=== PATIENT | female | born 1940 | race Caucasian/White ===

== ENCOUNTER 2018-06-29 18:01 | Emergency (ER) | payer MEDICARE, OTHER, MEDICAID ==
[2018-06-29] MEDS ORDERED: Glucagon,Human Recombinant 1 MG Vial IM ONE (18:06)
--- NOTE | 2018-06-30 06:11 | EDM.PDOC ---
ED HPI GENERAL MEDICAL PROBLEM - General Chief Complaint: Gastrointestinal Problem Time Seen by Provider: 06/29/18 18:15 Source of Information: Reports: Patient History Limitations: Reports: No Limitations - History of Present Illness INITIAL COMMENTS - FREE TEXT/NARRATIVE: PtRonal presents to ER with complaints difficulty swallowing. She is a resident at the [facility]. She was eating dinner (chicken breast) and states that she feels she has a piece stuck in her esophagus. She is no unable to swallow anything. She has been trying to swallow water but it comes right back up. She does complain of some upper chest pain. No shortness of breath. Onset: Today Onset Date: 06/29/18 Onset Time: 17:30 Location: Reports: Chest Quality: Reports: Ache, Sharp Severity: Moderate Associated Symptoms: Reports: Nausea/Vomiting - Related Data Allergies Allergy/AdvReac Type Severity Reaction Status Date / Time No Known Allergies Allergy Verified 06/29/18 18:30 Home Meds: Home Meds Lisinopril 1 tab PO DAILY 06/29/18 [History] Past Medical History Cardiovascular History: Reports: High Cholesterol, Hypertension, Other (See Below) Other Cardiovascular History: aortic stenosis Gastrointestinal History: Reports: Other (See Below) Other Gastrointestinal History: dysphagia Musculoskeletal History: Reports: Osteoarthritis, Other (See Below) Other Musculoskeletal History: myalgia, pain right hip Psychiatric History: Reports: Depression, OCD, Schizophrenia, Other (See Below) Other Psychiatric History: cognitive impairment Endocrine/Metabolic History: Reports: Other (See Below) Other Endocrine/Metabolic History: atrophy thyroid Social & Family History - Tobacco Use Smoking Status *Q: Former Smoker Used Tobacco, but Quit: Yes Month/Year Tobacco Last Used: 1989 ED ROS GENERAL - Review of Systems Review Of Systems: See Below Constitutional: Reports: No Symptoms HEENT: Reports: No Symptoms Respiratory: Reports: No Symptoms, Other (chest/esophageal pain) Cardiovascular: Reports: No Symptoms Endocrine: Reports: No Symptoms GI/Abdominal: Reports: No Symptoms : Reports: No Symptoms Musculoskeletal: Reports: No Symptoms Skin: Reports: No Symptoms Neurological: Reports: No Symptoms Psychiatric: Reports: No Symptoms Hematologic/Lymphatic: Reports: No Symptoms Immunologic: Reports: No Symptoms ED EXAM, GENERAL - Physical Exam Exam: See Below Exam Limited By: No Limitations General Appearance: Alert, WD/WN, No Apparent Distress Throat/Mouth: Normal Inspection, Normal Lips, Normal Teeth, Normal Gums, Normal Oropharynx, Dysphagia Head: Atraumatic, Normocephalic Neck: Normal Inspection, Supple, Non-Tender, Full Range of Motion Respiratory/Chest: No Respiratory Distress, Lungs Clear, Normal Breath Sounds, No Accessory Muscle Use, Chest Non-Tender Cardiovascular: Normal Peripheral Pulses, Regular Rate, Rhythm, No Edema, No Gallop, No JVD Peripheral Pulses: 4+: Radial (R) GI/Abdominal: Normal Bowel Sounds, Soft, Non-Tender, No Organomegaly, No Distention, Other (unable to swallow) (Female) Exam: Deferred Rectal (Female) Exam: Deferred Back Exam: Normal Inspection, Full Range of Motion, NT Extremities: Normal Inspection, Normal Range of Motion, Non-Tender, Normal Capillary Refill, No Pedal Edema Neurological: Alert, Oriented, CN II-XII Intact, Normal Cognition, Normal Gait, Normal Reflexes, No Motor/Sensory Deficits Course - Vital Signs Last Recorded V/S: Last Vital Signs Temp 36.5 C 06/29/18 18:10 Pulse 76 06/29/18 18:10 Resp 16 06/29/18 18:10 BP 152/77 H 06/29/18 18:10 Pulse Ox 97 06/29/18 18:10 - Orders/Labs/Meds Meds: Medications Discontinued Medications Generic Name Dose Route Start Last Admin Trade Name Jose Luis PRN Reason Stop Dose Admin Glucagon 1 mg 06/29/18 18:06 06/29/18 18:15 Glucagen IM 06/29/18 18:07 1 mg ONETIME ONE Administration - Re-Assessments/Exams Free Text/Narrative Re-Assessment/Exam: Pt. was given 1 mg glucagon IM. She was observed for a period of time. The discomfort resolved. She was then able to swallow water without any difficulty and her symptoms completely resolved. Departure - Departure Time of Disposition: 19:24 Disposition: DC/[facility] to [facility] Clinical Impression: Impacted esophageal foreign body - Discharge Information Instructions: Swallowed Foreign Body, Adult Referrals: Krystle Wasserman MD [Primary Care Provider] - Forms: ED Department Discharge Additional Instructions: mechanical soft diet for next 3 days. Follow-up in the clinic in 7-10 days. If this happens again, she might need to have an upper endoscopy to determine if she has a stricture in her esophagus. Make sure that her food is very well cut up. - Assessment/Plan Plan: mechanical soft diet for next 3 days. Follow-up in the clinic in 7-10 days. If this happens again, she might need to have an upper endoscopy to determine if she has a stricture in her esophagus. Make sure that her food is very well cut up.
== END 2018-06-29 19:24 ==
LOC: VM.ED 18:01
DX: T18.128A Food in esophagus causing other injury, initial encounter (principal); I10 Essential (primary) hypertension; Z87.891 Personal history of nicotine dependence; X58.XXXA Exposure to other specified factors, initial encounter
CPT/HCPCS: 96372; 99284; J1610

== ENCOUNTER 2018-07-28 08:39 | Day surgery (SDC) | payer MEDICARE, OTHER, MEDICAID ==
[~2018-07-28 08:39] MED LIST: Lactated Ringers 1,000 ML IV SCH; Sodium Chloride 0.9% 10 ML Syringe FLUSH PRN
[2018-07-28] MEDS ORDERED: Lactated Ringers 1,000 ML IV SCH (09:30)
[2018-07-28] MEDS ORDERED: Lidocaine 4% 5 ML Amp ONE (10:42)
[2018-07-28] MEDS ORDERED: Propofol 200 MG/20 ML SDV ONE (11:01)
[2018-07-28] MEDS ORDERED: fentaNYL 100 MCG/2 ML SDV ONE (11:12)
--- NOTE | 2018-07-28 12:17 | OR ---
PREOPERATIVE DIAGNOSIS: Dysphagia, abnormal barium swallow. POSTOPERATIVE DIAGNOSIS: Severe gastroesophageal reflux disease with esophageal stenosis, hiatal hernia, gastritis. PROCEDURE PROPOSED: Upper gastrointestinal panendoscopy. PROCEDURE DONE: Upper gastrointestinal panendoscopy with antral biopsies. INDICATION: This is a 77-year-old female with some dysphagia and had an upper GI barium swallow that showed some narrowing of the GE junction and it is felt that she should be endoscoped. DESCRIPTION OF PROCEDURE: Technique and Findings: The patient was brought to endoscopy suite, placed in left lateral decubitus position. She was sedated per [employer] with propofol. The intraoral bite block was put in position and the flexible video gastroscope was then passed transorally and under visualization as well into the duodenum. The duodenum and duodenal bulb were unremarkable. The antrum and proximal portion of the stomach revealed some mild antritis with some petechial hemorrhage. In the GE junction area, she did have a 4 cm hiatal hernia and she had a rather significant stenosis down about 10 mm. She also had a rather significant ulcerative acid reflux in the lower esophagus. The upper esophagus and middle esophagus appeared normal. It is felt that she definitely needed some balloon dilation. A couple of antral biopsies were taken prior to completing this portion of the procedure for ruling out H pylori. IMPRESSION: 1. Hiatal hernia with this grade 2 gastroesophageal reflux disease. 2. Esophageal stenosis requiring dilation. PLAN: The patient will be placed on Protonix 40 mg daily for 3 months, and she will undergo a balloon endoscopic visualized dilation to follow. SCM: 07/28/2018 11:31:24 MODL: 07/28/2018 12:11:13 /[id number]
--- NOTE | 2018-07-28 12:27 | OR ---
PREOPERATIVE DIAGNOSIS: Esophageal stenosis. POSTOPERATIVE DIAGNOSIS: Esophageal stenosis. PROCEDURE PROPOSED: Endoscopic balloon dilation. PROCEDURE DONE: Endoscopic balloon dilation. INDICATION: This is a 77-year-old female who was found on endoscopy to have significant stenosis down to the tightness of the size of the gastroscope, which is about 10 mm, and I felt that she should be dilated from that point on. TECHNIQUE: The patient was already sedated from the EGD. The endoscope was in the esophagus. I passed the dilating balloon 12 to 15 mm in size and began the dilation at 12 mm followed by 13.5 and followed by 15. Under visualization, this balloon was then deflated and inspection revealed some bleeding and some definite opening up of the stenosis. I felt that we could go a little further. I then brought in a second balloon starting at 15 mm and then at the second stop was at 16.5 mm and at this point, I deflated the balloon and inspected and started to see some mild tearing of the esophagus mucosa. I therefore felt we would stop at that point and the area was irrigated and looked good and the procedure was terminated as the endoscope and balloon were removed. FINAL IMPRESSION: Esophageal stenosis dilated to 16.5 mm. PLAN: Protonix daily for 3 months. Followup EGD with dilation as needed. SCM: 07/28/2018 11:31:24 MODL: 07/28/2018 12:19:10 /[id number]
== END 2018-07-28 12:45 | disposition home or self-care (01) ==
LOC: VM.SDS 08:39
PROVIDERS: ATTEND Surgery
DX: K22.2 Esophageal obstruction (principal); K21.9 Gastro-esophageal reflux disease without esophagitis; K44.9 Diaphragmatic hernia without obstruction or gangrene; I10 Essential (primary) hypertension; M16.0 Bilateral primary osteoarthritis of hip; E03.4 Atrophy of thyroid (acquired); E78.00 Pure hypercholesterolemia, unspecified; Z87.891 Personal history of nicotine dependence; Z79.890 Hormone replacement therapy; Z79.82 Long term (current) use of aspirin; Z79.899 Other long term (current) drug therapy
CPT/HCPCS: 00731; J2704; J3010; J7120

== ENCOUNTER 2025-01-02 09:34 | Emergency (ER) | payer MEDICARE, OTHER, MEDICAID ==
[2025-01-02] MEDS: Ketorolac 30 MG/ML SDV IM ONE (10:54)
== END 2025-01-02 13:30 ==
LOC: VM.ED 09:34
DX: S83.91XA Sprain of unspecified site of right knee, initial encounter (principal); I10 Essential (primary) hypertension; E78.00 Pure hypercholesterolemia, unspecified; E03.9 Hypothyroidism, unspecified; M19.90 Unspecified osteoarthritis, unspecified site; Z79.82 Long term (current) use of aspirin; Z79.890 Hormone replacement therapy; Z79.899 Other long term (current) drug therapy; W19.XXXA Unspecified fall, initial encounter; Y92.129 Unspecified place in nursing home as the place of occurrence of the external cause
CPT/HCPCS: 73562; 96372; 99284; J1885